=== PATIENT | male | born 1970 | race Caucasian/White ===

== ENCOUNTER 2024-08-11 19:44 | Emergency (ER) | payer SELFPAY ==
[2024-08-11] VITALS (8 sets, daily range): BP systolic 136–139; BP diastolic 87–101; PULSE 67–92; RESP 14–23; TEMP 36.4–36.7; O2SAT 93–98; BMI 32.8
--- NOTE | 2024-08-11 19:57 | ED.VIS.CHEST ---
HPI History of Present Illness Chief Complaint: Chest Pain Narrative Narrative: 54-year-old male who no significant past medical history, presents with chest pain and pressure that began earlier today. He relates history that he is under a lot of stress, and was going through a bad divorce. Yesterday/last evening at the gas station he was trying to decide between cigarettes and alcohol, but he does not really smoke. He brought 2 packs of cigarettes and proceeded to smoke the entire 2 packs within the last 24 hours. He began having epigastric discomfort and midsternal chest pain, and felt short of breath. He is concerned because his blood pressure is usually below 120 and it was elevated today. He relates a lot of stress and anxiety, and is worried that he did damage to his body by smoking so many cigarettes. PFSH PFSH Home Medications ?Medication ?Instructions ?Recorded ?Last Taken ?Type oxycodone-acetaminophen 5 mg-325 1 - 2 tab PO Q4H PRN PRN Pain #20 09/24/14 Unknown Rx mg tablet tabs cetirizine 10 mg tablet (24Hour 10 mg PO DAILY 08/11/24 Unknown History Allergy) Allergy/AdvReac Type Severity Reaction Status Date / Time fentanyl Allergy Other Verified 08/11/24 19:48 Social History Smoking Status: Former smoker ROS ROS ED ROS Narrative Constitutional: No fever, no chills. HEENT: No sore throat. No neck pain. Cardiovascular: Midsternal pressure chest pain. No palpitations. No pedal edema. Respiratory: No cough, positive shortness of breath. Abdominal: Epigastric abdominal pain. No nausea. No vomiting. Genitourinary: No dysuria. No hematuria. Musculoskeletal: No myalgias. No arthralgias. Neurologic: No headaches. No dizziness. No lightheadedness. Psychiatric: No depression. Positive stress and anxiety. EXAM Physical Exam Narrative Exam Narrative: Afebrile. Vital signs noted. Nontoxic-appearing. Cardiovascular examination feels a regular rate and rhythm without murmurs rubs or gallops appreciated. Lungs are clear to auscultation bilaterally but he is mildly tachypneic. Abdomen is soft and nontender without guarding or rebound. Positive bowel sounds. Neurological examination is nonfocal and nonlateralizing. No pedal edema. Psychiatric examination does show mild anxiety. Const Vital Signs: 08/11/24 19:44 08/11/24 20:00 08/11/24 20:10 Temperature 97.5 F L Temperature Source Temporal Pulse Rate 89 72 Respiratory Rate 20 H 15 Blood Pressure 136/101 H Blood Pressure Mean 112 Pulse Ox 95 96 Oxygen Delivery Method Room Air Room Air 08/11/24 20:15 08/11/24 20:30 08/11/24 20:45 Temperature Temperature Source Pulse Rate 76 77 76 Respiratory Rate 18 14 14 Blood Pressure Blood Pressure Mean Pulse Ox 93 96 97 Oxygen Delivery Method 08/11/24 21:00 08/11/24 22:00 Temperature Temperature Source Pulse Rate 69 92 Respiratory Rate 15 23 H Blood Pressure Blood Pressure Mean Pulse Ox 96 96 Oxygen Delivery Method Room Air Heart Score History: Slightly/Non-Suspicious ECG: Normal Age: >45 - <65 years Risk Factors: No Risk Factors Troponin: </= Normal Limit Score: 1 MDM MDM MDM Narrative Medical decision making narrative: Differential diagnosis includes but not limited to ACS versus anxiety versus nicotine overdose. I have low suspicion for pulmonary embolism, and the patient is PERC negative. Comprehensive workup was pursued. EKG was obtained and interpreted by myself independently as normal sinus rhythm with sinus arrhythmia at [address] changes. No STEMI. I reviewed his laboratory work and he has normal white count of 5.8 with hemoglobin normal 13.4, platelet count 281. Sodium normal at 138 with potassium 3.6, chloride 105, BUN normal at 13 with creatinine 0.75, glucose appropriately elevated 98. Lipase normal at 52 so I doubt pancreatitis. Initial high-sensitivity troponin is less than 6. On my independent interpretation of his chest x-ray in 1 view, there is no acute process, no pneumothorax, no consolidation/pneumonia. I reviewed the radiology report which confirms my independent interpretation. Repeat examination shows him more calm. He is not currently suicidal but states he has been under a lot of stress. I feel that as long as his repeat troponin is negative that he can be discharged to follow-up. It returned at 6 for an acceptable delta troponin. He was told to avoid use of both alcohol and nicotine. He will follow-up with his primary care provider. Return instructions to the emergency department reviewed. Of note, he was seen by social work as well, it was thought that maybe he has underlying stress and anxiety. Disposition discharged home in stable condition. History & Record Review Discussion w/independent historian: Patient Additional record(s) reviewed:: Prior ED visit Lab Data Attestation: I reviewed the patient's lab results. Labs: Laboratory Results - last 24 hr 08/11/24 08/11/24 19:53 21:52 WBC 5.8 RBC 4.48 L Hgb 13.4 Hct 38.2 L MCV 85.3 MCH 29.9 MCHC 35.1 RDW Std Deviation 38.5 RDW Coeff of Jade 12.4 Plt Count 281 MPV 8.5 Immature Gran % (Auto) 0.500 Neut % (Auto) 68.6 Lymph % (Auto) 21.0 [place] % (Auto) 7.8 Eos % (Auto) 1.4 Baso % (Auto) 0.7 Absolute Neuts (auto) 4.0 Absolute Lymphs (auto) 1.21 Nucleated RBC % 0 Sodium 138 Potassium 3.6 Chloride 105 Carbon Dioxide 21.0 Anion Gap 12 BUN 13 Creatinine 0.75 Estim Creat Clear Calc 137.73 Est GFR (MDRD) Non-Af 106 BUN/Creatinine Ratio 17.4 Glucose 98 Calcium 9.3 Troponin T High Sens < 6 Troponin T Hi Sens 2 Hr 6 Lipase 52 Radiography Diagnostic Testing: Clinical Impression(s) from Imaging Studies Chest X-Ray 08/11/24 20:07 IMPRESSION: No Acute Findings. Reading Location: [facility] Discharge Plan Triage Chief Complaint: Chest Pain ED Provider: Augustine Chaudhari Dx/Rx/DC Orders Clinical Impression: Chest pain, Anxiety as acute reaction to exceptional stress, Accidental overdose of nicotine Instructions: ED Anxiety Reaction, ED Chest Pain, Uncertain Cause Prescriptions: No Action oxycodone-acetaminophen 1 TABLET tablet 1 - 2 tab PO Q4H PRN PRN (Reason: Pain) Qty: 20 0RF cetirizine [24Hour Allergy] 10 mg tablet 10 mg PO DAILY Primary Care Provider: Care Physician,No Primary Referrals: Osmany Orosco MD [Non-Staff] - 3-5 Days if not improving Activity Restrictions/Additional Instructions: Do not smoke cigarettes. Follow-up with your primary care provider. Return with increased chest pain, new or worsening symptoms. Print Language: Swazi Disposition Disposition: Home, Self Care
--- NOTE | 2024-08-11 20:07 | RAD_ITS ---
PROCEDURE: CHEST 1 VIEW (PORTABLE) 08/11/2024 REASON FOR EXAM: CHEST PAIN TECHNIQUE: Frontal view of the chest. FINDINGS: Hardware: None Heart: Cardiac and mediastinal contours are stable. Lungs: The lungs are clear. Bones: The bones are unremarkable. Other: RAD/Chest 1 View (Portable) IMPRESSION: No Acute Findings. Reading Location: [id number]
[2024-08-11 20:08] LABS: Absolute Lymphocyte Count 1.21 X10^3/uL (0.83-4.51); Basophil# 0.04 X10^3/uL; Basophil% 0.7 % (0-1); Eosinophil# 0.08 X10^3/uL; Eosinophils% 1.4 % (0-5); Hematocrit 38.2 % (40-54); Hemoglobin 13.4 g/dL (13.0-16.5); Lymphocyte # 1.21 X10^3/ul (0.83-4.51); Mean Corp Hgb Conc 35.1 g/dL (32-36); Mean Corpuscular Hgb 29.9 pg (27.0-32.0); Mean Corpuscular Volume 85.3 fL (80-94); Mean Platelet Vol. 8.5 fl (6.2-12.0); Monocyte# 0.45 X10^3/uL; Monocyte% 7.8 % (0-10); NRBC Flagged by Analyzer 0 % (0-5); Neutrophil # 3.96 X10^3/uL (2.7-7.7); Neutrophil % 68.6 % (47-70); Platelet Count 281 K/mm3 (150-450); RBC Distribution Width CV 12.4 % (11.6-14.6); RBC Distribution Width SD 38.5 fl (35.1-43.9); Red Blood Count 4.48 M/mm3 (4.6-6.2); White Blood Count 5.8 K/mm3 (4.4-11.0)
[2024-08-11] MEDS: 0.9% Normal Saline (1000mL) 1,000 ML 999 ML IV (20:08)
[2024-08-11 20:36] LABS: Anion Gap 12 (5-15); BUN 13 mg/dL (4-19); BUN/Creat Ratio 17.4 RATIO (10-20); Calcium,Total 9.3 mg/dL (7.6-11.0); Chloride 105 mmol/L (98-108); Creatinine, Serum 0.75 mg/dL (0.70-1.20); EST Glomerular Filtration Rate 106 (>60); Estimated Creatinine Clearance 137.73 ml/min (50-250); Glucose 98 mg/dL (70-99); Lipase 52 U/L (13-75); Potassium 3.6 mmol/L (3.3-5.1); Sodium Level 138 mmol/L (133-145); Troponin T High Sensitivity < 6 ng/L (<=22)
--- NOTE | 2024-08-11 21:43 | CM.ED ---
Social Work SW met with patient, introduced self and explained role in hospital. Patient told SW that he has recently gone through a divorce and came back to [place] after moving to [place] to get the rest of his possessions out of the house that he and his ex owned. Patient also discussed the strained relationship with his children and how hard it has been to be around his ex and his children as some are not speaking to him. Patient states today it became too much and he stopped at a gas station and decided to get 2 packs of cigarettes even though he does not smoke. Patient stated that he smoked most of the two packs and then became physically unwell which brought him in to the ED. Emotional support was provided as patient reviewed complications with his family life. Patient has been seeing a counselor in [place] and even though he recently graduated, he is able to reach out when needed. Patient is due to return to [place] on Thursday. No further needs identified at this time. Lisa Mladonado, [employer], [employer]
[2024-08-11 22:10] LABS: Troponin T High Sens 2 HR 6 ng/L (<=22)
== END 2024-08-11 22:36 | disposition home or self-care (01) ==
PROVIDERS: Emergency Provider Emergency Medicine; Visit Provider Emergency Medicine
DX: T65.291A Toxic effect of other tobacco and nicotine, accidental (unintentional), initial encounter (principal); R07.89 Other chest pain; F43.0 Acute stress reaction; Z63.5 Disruption of family by separation and divorce; Z87.891 Personal history of nicotine dependence
CPT/HCPCS: 71045; 80048; 83690; 84484; 85025; 93005; 96360; 96361; 99283; A4216